=== PATIENT | male | born 1965 | race Caucasian/White ===

== ENCOUNTER 2020-01-28 14:01 | Emergency (ER) | payer OTHER ==
[2020-01-28 14:22] VITALS: BP 144/87; PULSE 84; RESP 18; TEMP 97.9
[2020-01-28] MEDS ORDERED: Acetaminophen-Codeine 300-30mg TAB PO STA (14:36)
--- NOTE | 2020-01-28 14:40 | ED ---
General Adult HPI - General Chief complaint: Fall Stated complaint: Fall, 4 stairs Time Seen by Provider: 01/28/20 14:24 Source: patient, RN notes reviewed, old records reviewed Mode of arrival: ambulatory Limitations: no limitations - History of Present Illness Initial comments: 54-year-old male patient presents to ED for evaluation of left hip pain after falling down stairs. Patient reports that he was walking down about 4 stairs when he slipped and his legs out from underneath him and he landed on his left hip. Denies any head or his neck. Denies any injury with exception of the left hip. Denies any blood thinners. Systemic: Pt denies fatigue, fever/chills, rash. Pt denies weakness, night sweats, weight loss. Neuro: Pt denies headache, visual disturbances, syncope or pre-syncope. HEENT: Pt denies ocular discharge or irritation, otalgia, rhinorrhea, pharyngitis or notable lymphadenopathy. Cardiopulmonary: Pt denies chest pain, SOB, heart palpitations, dyspnea on exertion. Abdominal/GI: Pt denies abdominal pain, n/v/d. : Pt denies dysuria, burning w/ urination, frequency/urgency. Denies new onset urinary or bowel incontinence. Neuro: Pt denies new onset weakness, paresthesias. - Related Data Previous Rx's Medication Instructions Recorded HYDROcodone/APAP 5-325MG [[place] 5] 1 each PO Q4HR PRN #30 tab 10/14/15 Allergies Allergy/AdvReac Type Severity Reaction Status Date / Time No Known Allergies Allergy Verified 01/28/20 14:22 Review of Systems ROS Statement: Those systems with pertinent positive or pertinent negative responses have been documented in the HPI. ROS Other: All systems not noted in ROS Statement are negative. Past Medical History Past Medical History: No Reported History History of Any Multi-Drug Resistant Organisms: None Reported, MRSA Date of last positivie culture/infection: 2012 MDRO Source:: leg Past Surgical History: Orthopedic Surgery Past Psychological History: No Psychological Hx Reported Smoking Status: Current every day smoker Past Alcohol Use History: Occasional Past Drug Use History: Marijuana General Exam - General Exam Comments Initial Comments: Constitutional: NAD, AOX3, Pt has pleasant affect. HEENT: NC/AT, trachea midline, neck supple, no lymphadenopathy. External ears appear normal, without discharge. Mucous membranes moist. Eyes PERRLA, EOM intact. There is no scleral icterus. No pallor noted. Cardiopulmonary: RRR, no murmurs, rubs or gallops, no JVD noted. Lungs CTAB in anterior and posterior martinez. No peripheral edema. Abdominal exam: Abdomen soft and non-distended. Abdomen non-tender to palpation in all 4 quadrants. Bowel sounds active in LLQ. No hepatosplenomegaly. No ec chymosis Neuro: CN II-XII grossly intact. No nuchal rigidity. No raccon eyes, no jacobs sign. No cervical spinal tenderness. MSK: mild tenderness lateral aspect of left midshaft femur. No laceration no skin changes. All other extremities are palpated with no signs of trauma or tenderness. Cervical thoracic lumbar spine nontender.No posterior calf tenderness bilaterally, homans sign negative bilaterally. Posterior tibialis and radial pulse +2 bilaterally. Sensation intact in upper and lower extremities. Full active ROM in upper and lower extremities, 5/5 stregnth. Limitations: no limitations Course Vital Signs 01/28/20 14:20 Temperature 97.9 F Pulse Rate 84 Respiratory 18 Rate Blood Pressure 144/87 O2 Sat by Pulse 98 Oximetry Medical Decision Making - Medical Decision Making 54-year-old male patient presented to ED for evaluation of fall down about 4 stairs landing on his left hip. Patient had previous surgery partner put in he was 16. Plain films are negative. patient was able to bear weight. Patient was discharged with outpatient follow-up and return precautions. Case discussed with Dr. Zamora. Disposition Clinical Impression: Fall, Hip pain Disposition: HOME SELF-CARE Condition: Stable Instructions (If sedation given, give patient instructions): Fall Prevention (ED), Hip Pain (ED) Additional Instructions: follow-up with primary care provider initially. The pain does not improve follow up with orthopedic consult. I do recommend using crutches as needed he may bear weight as tolerated. if symptoms worsen return to emergency department. Is patient prescribed a controlled substance at d/c from ED?: No Referrals: None,Stated [Primary Care Provider] - 1-2 days Jared Montaño [STAFF PHYSICIAN] - 1-2 days Madeline Oconnell MD [REFERRING] - 1-2 days Sarina Osei DO [Doctor of Osteopathic Medicine] - 1-2 days
--- NOTE | 2020-01-28 15:03 | XR ---
EXAMINATION TYPE: XR femur LT DATE OF EXAM: 01/28/2020 COMPARISON: NONE HISTORY: Pain TECHNIQUE: 4 views FINDINGS: There is left hip nailing fixing the intertrochanteric left femur. Hip joint is intact. Hip and knee joint spaces are fairly well-maintained. There is no evidence of a fracture. IMPRESSION: Negative left femur exam.
--- NOTE | 2020-01-28 15:04 | XR ---
EXAMINATION TYPE: XR Hip LT and AP Pelvis DATE OF EXAM: 01/28/2020 COMPARISON: NONE HISTORY: Pain after falling TECHNIQUE: 3 views FINDINGS: The pelvic ring is intact. Proximal femurs and hip joints are intact. There is old left hip nailing noted. There are phleboliths in the pelvis. Sacroiliac joints appear normal. IMPRESSION: No acute abnormality of the pelvis and left hip.
[2020-01-28] MEDS ORDERED: ACET/COD 300 MG/30 MG STARTER PACK 6 TAB BTL PO STA (15:16)
== END 2020-01-28 15:22 | disposition home or self-care (01) ==
LOC: EC 14:01
DX: M25.552 Pain in left hip (principal); F17.200 Nicotine dependence, unspecified, uncomplicated; Z86.14 Personal history of Methicillin resistant Staphylococcus aureus infection; W10.9XXA Fall (on) (from) unspecified stairs and steps, initial encounter
CPT/HCPCS: 73502; 99284

== ENCOUNTER → 2020-02-07 | Outpatient (CLI) | payer OTHER ==
--- NOTE | 2020-02-07 16:43 | XR ---
EXAMINATION TYPE: XR Hip Complete LT DATE OF EXAM: 02/07/2020 CLINICAL HISTORY: Hip pain, fall TECHNIQUE: AP and frogleg views of the left hip are obtained. COMPARISON: Left hip and femur radiographs 01/28/2020 FINDINGS: Redemonstrated old left hip fixation with no evidence of hardware fracture. There is no ac puma fracture or dislocation of the left hip. The hip joint space appears within normal limits. The overlying soft tissue appears unremarkable. IMPRESSION: There is no acute fracture or dislocation of the left hip.
== END | disposition home or self-care (01) ==
LOC: RADXRYALE 15:20
PROVIDERS: ATTEND Physician Assistant Medical
DX: M25.552 Pain in left hip (principal)
CPT/HCPCS: 73502

== ENCOUNTER → 2020-02-15 | Outpatient (CLI) | payer OTHER ==
--- NOTE | 2020-02-15 10:36 | CT ---
EXAMINATION TYPE: CT hip LT wo con DATE OF EXAM: 02/15/2020 COMPARISON: Radiograph 02/07/2020 HISTORY: 54-year-old male Contusion Left Hip, pain after fall TECHNIQUE: Contiguous axial scanning of the left hip without IV contrast. Coronal and sagittal recons tructions performed. 3-D reconstructions generated on a dedicated independent workstation. CT DLP: 491 mGycm Automated exposure control for dose reduction was used. FINDINGS: There is circumferential bladder wall thickening. Prostate gland appears enlarged. Some irregular mur al based opacity at the level of the rectum, reference axial image 272 and 273 [address] adherent sto ol. Direct visualization to exclude neoplasm. Multiple pelvic phleboliths. There is a left L5 hemisacralization noted. Accelerated degenerative disc disease above at L4-L5. Dynamic left hip screw fixation is demonstrated. No acute fracture seen of the left side of the pelvi s. No significant soft tissue abnormality appreciated. IMPRESSION: 1. PRIOR DYNAMIC LEFT HIP SCREW FIXATION WHICH APPEARS INTACT. NO ACUTE FRACTURE IDENTIFIED ALONG THE LEFT SIDE OF THE PELVIS OR PROXIMAL LEFT FEMUR. 2. BLADDER WALL THICKENING COULD REPRESENT CYSTITIS OR CHRONIC BLADDER WALL HYPERTROPHY. 3. IRREGULAR MURAL BASED OPACITY INVOLVING THE RECTUM COULD REPRESENT ADHERENT STOOL OR NEOPLASM. DIR ECT VISUALIZATION RECOMMENDED IF ROUTINE SCREENING COLONOSCOPY IS NOT BEING PERFORMED. 4. INCIDENTAL LEFT L5 HEMISACRALIZATION. ACCELERATED DEGENERATIVE DISC DISEASE ABOVE AT L4-L5.
== END | disposition home or self-care (01) ==
LOC: RADCTMAIN 07:14
PROVIDERS: ATTEND Orthopaedic Surgery Sports Medicine
DX: S70.02XA Contusion of left hip, initial encounter (principal); M25.552 Pain in left hip; Z98.890 Other specified postprocedural states

== ENCOUNTER → 2024-02-25 | Outpatient (CLI) | payer BC ==
--- NOTE | 2024-02-25 08:18 | CTL ---
EXAMINATION TYPE: CT Low Dose Lung DATE OF EXAM: 02/25/2024 7:22 AM CLINICAL INDICATION: Male, 58 years old with history of Z12.2 ENCNTR SCREEN FOR MALIGNANT NEOPLASM OF RESP; Encounter for screening for malignant neoplasm, Personal history of nicotine dependence (forme r smoker), history of tobacco use. COMPARISON: None. TECHNIQUE: Multiple axial non-contrast scans were obtained from approximately the lung apices through the upper abdomen. Coronal and sagittal reformatted images were obtained. Low dose technique was uti lized. MIP were created on a separate workstation and submitted for review. CT DLP: 82.60 mGycm, Automated exposure control for dose reduction was used. CT Contrast: Contrast used: None Oral contrast used: None FINDINGS: Lack of intravenous contrast and low dose technique limits the evaluation of the vascular and soft ti ssue structures. LUNGS: No evidence of pulmonary fibrosis. No evidence of focal consolidation, pneumothorax or pleural effusion. Centrilobular emphysema changes. Nodules: RUL: None. RML: None. RLL: None. MARIA E: None. LLL: None. AIRWAY: Patent and unremarkable. HEART: Size within normal limits. MEDIASTINUM: No gross evidence of adenopathy. VASCULATURE: No aortic aneurysm. MUSCULOSKELETAL: No acute osseous abnormalities MR remote left-sided remnant rib injuries. SOFT TISSUES/LYMPH NODES: Unremarkable. LOWER NECK: No significant findings. UPPER ABDOMEN: No significant findings. IMPRESSION: 1. No clinically significant pulmonary nodules. 2. Mild emphysema. CT LUNG RAD AND CT CHEST RECOMMENDATION: Lung-Rad 2 Benign Appearance or Behavior: Continue annual sc reening with LDCT in 12 months. S Modifier (other clinically significant findings): None Recommend smoking cessation (if current smoker), or continuation of smoking cessation (if prior smoke r). Annual screening for lung cancer with low-dose computed tomography is recommended in adults ages 55 to 77 years who have a 30 pack-year smoking history and currently smoke or have quit within the pa st 15 years. Screening should be discontinued once a person has not smoked for 15 years or develops a health problem that substantially limits life expectancy or the ability or willingness to have curat gavino lung surgery. Lung rads 2021 [email or web address] [facility], , 02/25/2024 8:15 AM
== END | disposition home or self-care (01) ==
LOC: RADCTMAIN 06:58
PROVIDERS: ATTEND Family Medicine
DX: Z12.2 Encounter for screening for malignant neoplasm of respiratory organs (principal); J43.9 Emphysema, unspecified; J43.2 Centrilobular emphysema; Z87.891 Personal history of nicotine dependence
CPT/HCPCS: 71271